=== PATIENT | female | born 1995 | race African-American/Black ===

== ENCOUNTER 2018-12-22 23:40 | Inpatient (IN) | payer BC ==
[2018-12-23] MEDS: DEXTROSE 5%-LACTATED RINGERS 1,000 ML IV SCH ×2 (00:30→10:16)
[2018-12-23 01:13] LABS: BASO % 0.6 % (0-2.0); EOS % 0.9 % (0-4.5); HEMATOCRIT 35.1 % (32.4-45.2); HEMOGLOBIN 11.7 GM/dL (10.7-15.3); LYMPH % 28.2 % (8-40); MCH 30.2 pg (25.7-33.7); MCHC 33.3 g/dl (32.0-36.0); MEAN CELL VOLUME 90.6 fl (80-96); MEAN PLT VOLUME 8.5 fl (7.5-11.1); MONO % 10.6 % (3.8-10.2); NEUT % 59.7 % (42.8-82.8); PLATELET COUNT 213 K/MM3 (134-434); RBC 3.88 M/mm3 (3.60-5.2); RDW 14.2 % (11.6-15.6); WHITE BLOOD COUNT 7.6 K/mm3 (4.0-10.0)
[2018-12-23 01:25] VITALS: BMI 29.8
[2018-12-23 01:30] LABS: INR 0.97 (0.83-1.09); PROTHROMBIN TIME (PATIENT) 11.4 SEC (9.7-13.0)
[2018-12-23 01:32] LABS: ACTIVATED PTT 27.2 SECONDS (25.2-36.5)
[2018-12-23 01:39] LABS: BLOOD UREA NITROGEN 8.2 mg/dL (7-18); CALCIUM 8.5 mg/dL (8.5-10.1); CREATININE 0.8 mg/dL (0.55-1.3); POTASSIUM 3.9 mmol/L (3.5-5.1)
[2018-12-23] MEDS ORDERED: BUTORPHANOL TARTRATE 2 MG/ML VIAL IVPB ONE (02:25)
[2018-12-23] MEDS ORDERED: PROMETHAZINE HCL 25 MG/1 ML VIAL IVPB ONE (02:25)
[2018-12-23] MEDS ORDERED: PROMETHAZINE HCL 25 MG/1 ML VIAL ONE (02:29)
[2018-12-23] MEDS ORDERED: BUTORPHANOL TARTRATE 2 MG/ML VIAL ONE (02:29)
[2018-12-23] MEDS ORDERED: OXYTOCIN 20 UNITS in 0.9% NS 20 UNIT/1,000 ML INFUS.BAG IV ONE (05:44)
[2018-12-23] MEDS ORDERED: METHYLERGONOVINE MALEATE 0.2 MG/1 ML AMP IM PRN (06:41)
[2018-12-23] MEDS ORDERED: BISACODYL 10 MG SUPP.RECT RC PRN (06:41)
[2018-12-23] MEDS ORDERED: BENZOCAINE 28 GM HEMORRHOIDAL OINTMENT TP PRN (06:41)
[2018-12-23] MEDS ORDERED: WITCH HAZEL 50% (TUCKS) 40 PAD/JAR PAD TP PRN (06:41)
[2018-12-23] MEDS ORDERED: BENZOCAINE 20% 57 GM BOTTLE TP PRN (06:41)
--- NOTE | 2018-12-23 06:46 | HP ---
Past Medical History - Admission Chief Complaint: Labor pain History of Present Illness: 23 yo , @ 38 weeks gestation, EDC 01/05/19, admitted for labor pain. History Source: Patient Limitations to Obtaining History: No Limitations - Past Medical History ...: 2 ...Para: 0 ...Induced : 1 ...EDC by Sono: 01/05/19 - Past Surgical History Past Surgical History: Yes: None Hx Myomectomy: No Hx Transabdominal Cerclage: No - Smoking History Smoking history: Never smoked - Alcohol/Substance Use Hx Alcohol Use: No Home Medications - Allergies Allergies/Adverse Reactions: Allergies Allergy/AdvReac Type Severity Reaction Status Date / Time No Known Allergies Allergy Verified 12/23/18 00:36 - Home Medications Home Medications: Ambulatory Orders 19 Tablet 1 tab PO DAILY 12/23/18 Family Disease History - Family Disease History Family History: Unremarkable Review of Systems - Review of Systems Constitutional: reports: No Symptoms Eyes: reports: No Symptoms HENT: reports: No Symptoms Neck: reports: No Symptoms Cardiovascular: reports: No Symptoms Respiratory: reports: No Symptoms Gastrointestinal: reports: No Symptoms Genitourinary: reports: Pain Breasts: reports: No Symptoms Reported Musculoskeletal: reports: No Symptoms Integumentary: reports: No Symptoms Neurological: reports: No Symptoms Endocrine: reports: No Symptoms Hematology/Lymphatic: reports: No Symptoms Psychiatric: reports: No Symptoms Pain Intensity: 8 Physical Exam - Maternity Vital Signs: Vital Signs Temperature 98.0 F 12/23/18 04:00 Pulse Rate 88 12/23/18 05:00 Respiratory Rate 20 12/23/18 05:00 Blood Pressure 127/82 12/23/18 05:00 O2 Sat by Pulse Oximetry (%) Constitutional: Yes: Well Nourished Eyes: Yes: Conjunctiva Clear HENT: Yes: Atraumatic Neck: Yes: Supple Cardiovascular: Yes: Regular Rate and Rhythm Lungs: Clear to auscultation - Abdominal Exam/OB Number of Fetuses: Single Presentation: Vertex - Vaginal Exam/OB Dilatation (cm): 3-4 Effacement (%): 80 Amniotic Membrane Status: Intact Presentation: Vertex/Position Station: -1 - Physical Exam Integumentary: Yes: WNL ...Motor Strength: WNL Psychiatric: Yes: Alert, Oriented - Labs Lab Results: CBC, BMP 12/23/18 00:55 12/23/18 00:55 Problem List - Problems (1) 38 weeks gestation of Code(s): Z3A.38 - 38 WEEKS GESTATION OF (2) Pain during labor Code(s): O99.89 - OTH DISEASES AND CONDITIONS COMPL PREG/CHLDBRTH; R52 - PAIN, UNSPECIFIED Assessment/Plan Active labor Admit to L&D Analgesia as needed Anticipate
--- NOTE | 2018-12-23 06:48 | PN ---
Delivery - Delivery Vaginal Delivery: Spontaneous Episiotomy/Laceration: 1st degree EBL (cc): 300 Delivery, Single - Ward Feeding Plan Initial Plan: Exclusive throughout hospitalization Remarks - Remarks Remarks: Normal spontaneous vaginal delivery of a live infant over fist degree laceration. Nose / Oropharynx suctioned @ perineum. Cord clamped and cut. Baby handed to nurse. Placenta expelled spontaneously intact. Mother in stable condition.
[2018-12-23] MEDS ORDERED: TUBERCULIN PPD 5 TU/0.1ML SYRINGE (IN PATIENT USE ONLY) ID ONE (10:00)
[2018-12-23] MEDS: PRENATAL VITAMINS W/ FOLIC ACID TABLET (FP) PO SCH (10:08)
[2018-12-23] MEDS: OXYTOCIN 20 UNITS in 0.9% NS 20 UNIT/1,000 ML INFUS.BAG IV SCH (12:45)
[2018-12-23] MEDS: IBUPROFEN 600 MG TABLET (FP) PO PRN ×2 (13:21→22:19)
[2018-12-23] MEDS: ACETAMINOPHEN 325 MG TABLET (FP) PO PRN ×2 (13:21→22:18)
[2018-12-23] MEDS: FERROUS SO4 325 MG TABLET (FP) PO SCH (17:47)
--- NOTE | 2018-12-24 06:43 | PN ---
Post Progress Note - Subjective Subjective: Pt seen/evaluated and doing well. Pain controlled with medications, tolerating diet, ambulating, voiding. VB moderate but decreasing. No other complaints. Type of Delivery: Vital Signs: Vital Signs Temperature 97.7 F 12/24/18 05:00 Pulse Rate 69 12/24/18 05:00 Respiratory Rate 18 12/24/18 05:00 Blood Pressure 119/60 12/24/18 05:00 O2 Sat by Pulse Oximetry (%) 98 12/23/18 07:30 Uterus: Yes: Fundus Firm Abdomen/GI: Yes: Abdomen soft Lochia: Yes: Rubra Lochia, amount: Small Extremities: No: Calves non-tender, Edema Perineum: Yes: Laceration (re approximated well) Activity: Ambulating - Labs Labs: CBC WBC 7.6 K/mm3 (4.0-10.0) 12/23/18 00:55 RBC 3.88 M/mm3 (3.60-5.2) 12/23/18 00:55 Hgb 11.7 GM/dL (10.7-15.3) 12/23/18 00:55 Hct 35.1 % (32.4-45.2) D 12/23/18 00:55 MCV 90.6 fl (80-96) 12/23/18 00:55 MCH 30.2 pg (25.7-33.7) 12/23/18 00:55 MCHC 33.3 g/dl (32.0-36.0) 12/23/18 00:55 RDW 14.2 % (11.6-15.6) 12/23/18 00:55 Plt Count 213 K/MM3 (134-434) 12/23/18 00:55 MPV 8.5 fl (7.5-11.1) D 12/23/18 00:55 Absolute Neuts (auto) 4.5 K/mm3 (1.5-8.0) 12/23/18 00:55 Neutrophils % 59.7 % (42.8-82.8) 12/23/18 00:55 Lymphocytes % 28.2 % (8-40) 12/23/18 00:55 Monocytes % 10.6 % (3.8-10.2) H 12/23/18 00:55 Eosinophils % 0.9 % (0-4.5) 12/23/18 00:55 Basophils % 0.6 % (0-2.0) 12/23/18 00:55 Nucleated RBC % 0 % (0-0) 12/23/18 00:55 Problem List - Problems (1) Normal vaginal delivery Code(s): O80 - ENCOUNTER FOR FULL-TERM UNCOMPLICATED DELIVERY Assessment/Plan 23 y/o PPD#1 s/p normal AFVSS CBC pending regular diet PO pain meds routine care
[2018-12-24 07:38] LABS: BASO % 0.4 % (0-2.0); EOS % 0.7 % (0-4.5); HEMATOCRIT 29.2 % (32.4-45.2); LYMPH % 20.5 % (8-40); MCH 30.8 pg (25.7-33.7); MCHC 34.4 g/dl (32.0-36.0); MEAN CELL VOLUME 89.7 fl (80-96); MEAN PLT VOLUME 8.2 fl (7.5-11.1); MONO % 9.9 % (3.8-10.2); NEUT % 68.5 % (42.8-82.8); PLATELET COUNT 195 K/MM3 (134-434); RBC 3.26 M/mm3 (3.60-5.2); RDW 14.3 % (11.6-15.6); WHITE BLOOD COUNT 10.4 K/mm3 (4.0-10.0)
[2018-12-24] MEDS: FERROUS SO4 325 MG TABLET (FP) PO SCH ×2 (08:00→17:00)
[2018-12-24] MEDS: PRENATAL VITAMINS W/ FOLIC ACID TABLET (FP) PO SCH (09:46)
[2018-12-24] MEDS: ACETAMINOPHEN 325 MG TABLET (FP) PO PRN (11:22)
[2018-12-24] MEDS: IBUPROFEN 600 MG TABLET (FP) PO PRN (11:22)
[2018-12-24] MEDS ORDERED: SENNOSIDES/DOCUSATE COMBO (SENNA PLUS) TABLET (UD) PO PRN (22:00)
--- NOTE | 2018-12-25 07:20 | DS ---
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 Vital Signs: Vital Signs Temperature 98.3 F 12/24/18 21:29 Pulse Rate 75 12/24/18 21:29 Respiratory Rate 20 12/24/18 21:29 Blood Pressure 111/55 L 12/24/18 21:29 O2 Sat by Pulse Oximetry (%) 98 12/23/18 07:30 Constitutional: Yes: Well Nourished Eyes: Yes: Conjunctiva Clear HENT: Yes: Atraumatic Neck: Yes: Supple Cardiovascular: Yes: Regular Rate and Rhythm Respiratory: Yes: Regular Gastrointestinal: Yes: Normal Bowel Sounds External Genitalia: Yes: Normal Vaginal Exam: Yes: Normal Cervix: Yes: Normal Uterus: Yes: Firm ....Post : Yes: Uterus firm, Moderate lochia serosa Breast(s): Yes: WNL Musculoskeletal: Yes: WNL Extremities: Yes: WNL Neurological: Yes: Alert, Oriented ...Motor Strength: WNL Psychiatric: Yes: Alert, Oriented Labs: CBC, BMP 12/24/18 06:54 12/23/18 00:55 Delivery - Delivery Vaginal Delivery: Spontaneous Type of Anesthesia: None Episiotomy/Laceration: None, 1st degree EBL (cc): 300 Delivery, Single - Stages of Labor Date 1st Stage Initiatied: 12/22/18 Time 1st Stage Initiated: 21:00 Date 2nd Stage Initiated: 12/23/18 Time 2nd Stage Initiated: 06:00 Date of Delivery: 12/23/18 Time of Delivery: 06:16 Time Placenta Delivered: 06:20 - 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 - 1 Minute Total Score: 9 5 Minutes Total Score: 9 - Feeding Plan Initial Plan: Exclusive throughout hospitalization Discharge Summary Reason For Visit: LABOR ADMIT Current Active Problems 38 weeks gestation of (Acute) Normal vaginal delivery (Acute) Pain during labor (Acute) Procedures: Principal: Normal vaginal delivery Hospital Course: Routine care Condition: Good - Instructions Diet, Activity, Other Instructions: Physical activity Resume your normal everyday activity as tolerated but no heavy lifting or strenuous exercise until seen by your surgeon. You may walk unlimited amounts and climb stairs. You may resume driving the car when you feel safe and comfortable behind the wheel. No sexual activity as instructed. Wound care You have stitches that will dissolve on their own. You may shower daily but do NOT soak in tubs/baths/pool until cleared by your doctor - likely in 6 weeks. Diet There are no dietary restrictions. Eat healthy, high-fiber foods. Drink 6 to 8 glasses of liquid each day. This will assist in keeping your bowels regular. Pain management You may take Tylenol or Ibuprofen (for example, Motrin, Advil etc.) as needed for pain. Call MD for any of the following: Severe pain not relieved by medication Fever of 101 or higher Excessive bleeding or drainage on dressing Inability to urinate Referrals: Marylin Cabrales DO [Staff Physician] - 1 Month (6 weeks) Disposition: HOME - Home Medications Comprehensive Discharge Medication List: Ambulatory Orders 19 Tablet 1 tab PO DAILY 12/23/18
[2018-12-25] MEDS: DEXTROSE 5%-LACTATED RINGERS 1,000 ML IV SCH ×4 (07:49→11:57)
[2018-12-25] MEDS: OXYTOCIN 20 UNITS in 0.9% NS 20 UNIT/1,000 ML INFUS.BAG IV SCH ×2 (07:49→11:58)
[2018-12-25] MEDS: FERROUS SO4 325 MG TABLET (FP) PO SCH (07:50)
[2018-12-25] MEDS: PRENATAL VITAMINS W/ FOLIC ACID TABLET (FP) PO SCH (10:30)
[2018-12-25 12:25] VITALS: BP 121/83; PULSE 62; TEMP 98.1
== END 2018-12-25 13:40 | disposition home or self-care (01) | DRG 807 ==
LOC: JLDR 23:40 → J3W 12-23 08:16
PROVIDERS: ADMIT Obstetrics & Gynecology; ATTEND Obstetrics & Gynecology
PROC: 10E0XZZ Delivery of Products of Conception, External Approach (ICD-10-PCS; principal; 2018-12-23)
PROC: 0HQ9XZZ Repair Perineum Skin, External Approach (ICD-10-PCS; 2018-12-23)
DX: O70.0 First degree perineal laceration during delivery (principal); Z37.0 Single live birth; Z3A.38 38 weeks gestation of pregnancy
CPT/HCPCS: 36415; 59409; 80048; 85025; 85610; 85730; 86593; 86850; 86900; 86901

== ENCOUNTER 2020-08-10 04:55 | Inpatient (IN) | payer BC, OTHER ==
[2020-08-10 05:24] VITALS: BMI 30.4
[2020-08-10] MEDS ORDERED: ONDANSETRON 4 MG/2 ML VIAL IVPUSH ONE (05:46)
[2020-08-10] MEDS ORDERED: LACTATED RINGERS SOLUTION 1000 ML INFUS.BAG IV ONE (05:46)
[2020-08-10] MEDS ORDERED: ACETAMINOPHEN 1000 MG/100 ML VIAL (NON FORMULARY) IVPB ONE (05:46)
[2020-08-10] MEDS ORDERED: ONDANSETRON 4 MG/2 ML VIAL ONE (05:55)
[2020-08-10] MEDS ORDERED: ACETAMINOPHEN INJECTION 100 ML IVPB ONE (05:55)
[2020-08-10 06:09] LABS: EPI CELLS 9 /uL (0-25.1); HCG,QUALITATIVE URINE Negative; HYALINE CASTS 3 /uL (0-3.1); URINE APPEARANCE CLOUDY; URINE BACTERIA 729 /uL (0-1359); URINE BILIRUBIN NEGATIVE (NEGATIVE); URINE COLOR YELLOW; URINE GLUCOSE (UA) NEGATIVE (NEGATIVE); URINE KETONE NEGATIVE (NEGATIVE); URINE LEUK ESTERASE 2+ (NEGATIVE); URINE NITRITE NEGATIVE (NEGATIVE); URINE PROTEIN 1+ (NEGATIVE); URINE RBC 61 /uL (0-23.9); URINE UROBILINOGEN 0.2 mg/dL (0.2-1.0); URINE WBC 613 /uL (0-25.8)
[2020-08-10] MEDS ORDERED: KETOROLAC TROMETHAMINE 30 MG/1 ML VIAL IVPUSH ONE (06:23)
[2020-08-10] MEDS ORDERED: KETOROLAC TROMETHAMINE 30 MG/1 ML VIAL ONE (06:26)
[2020-08-10 06:42] LABS: BASO % 0.4 % (0-2.0); EOS % 0.2 % (0-4.5); HEMATOCRIT 36.6 % (32.4-45.2); HEMOGLOBIN 12.4 GM/dL (10.7-15.3); MCH 30.2 pg (25.7-33.7); MEAN CELL VOLUME 88.9 fl (80-96); MEAN PLT VOLUME 9.3 fl (7.5-11.1); MONO % 9.5 % (3.8-10.2); NEUT % 74.9 % (42.8-82.8); PLATELET COUNT 180 K/MM3 (134-434); RBC 4.12 M/mm3 (3.60-5.2); RDW 13.3 % (11.6-15.6); WHITE BLOOD COUNT 8.4 K/mm3 (4.0-10.0)
[2020-08-10 06:55] LABS: POTASSIUM 3.8 mmol/L (3.5-5.1)
[2020-08-10 06:59] LABS: CALCIUM 9.1 mg/dL (8.5-10.1)
[2020-08-10 07:00] LABS: BLOOD UREA NITROGEN 14.9 mg/dL (7-18)
[2020-08-10 07:03] LABS: CREATININE 1.3 mg/dL (0.55-1.3)
[2020-08-10 07:04] LABS: BILIRUBIN,TOTAL 0.4 mg/dL (0.2-1); TOT PROT 7.4 g/dl (6.4-8.2)
[2020-08-10] MEDS ORDERED: CEFTRIAXONE 1 GM in DEXTROSE 5%-WATER - 100 ML IVPB ONE (08:55)
[2020-08-10] MEDS ORDERED: CEFTRIAXONE 1 GM/50 ML BAG ONE (09:00)
[2020-08-10] MEDS ORDERED: SODIUM CHLORIDE 1,000 ML IV SCH ×2 (09:15→15:13)
[2020-08-10 10:19] LABS: INR 1.03 (0.83-1.09); PROTHROMBIN TIME (PATIENT) 12.6 SEC (9.7-13.0)
[2020-08-10] MEDS ORDERED: ACETAMINOPHEN 1000 MG/100 ML VIAL (NON FORMULARY) IVPB PRN ×2 (11:17→15:13)
[2020-08-10] MEDS ORDERED: LIDOCAINE HCL/PF 2% SDV 5ML VIAL ONE (14:11)
[2020-08-10] MEDS ORDERED: MIDAZOLAM HCL 2 MG/2 ML SINGLE DOSE VIAL ONE (14:12)
[2020-08-10] MEDS ORDERED: PROPOFOL 20 ML ONE (14:12)
[2020-08-10] MEDS ORDERED: DEXAMETHASONE SOD PHOSPHATE 4 MG/1 ML VIAL ONE (14:46)
[2020-08-10 18:24] VITALS: BP 138/85; PULSE 64; TEMP 98.8
[2020-08-11] MEDS ORDERED: CEFTRIAXONE 1 GM in DEXTROSE 5%-WATER - 50 ML IVPB SCH (10:00)
== END 2020-08-10 18:05 | disposition home or self-care (01) | DRG 661 ==
LOC: JER 04:55 → JERBED 08:55 → J2C 16:00
PROVIDERS: ADMIT Internal Medicine; ATTEND Internal Medicine
PROC: 0T778DZ Dilation of Left Ureter with Intraluminal Device, Via Natural or Artificial Opening Endoscopic (ICD-10-PCS; principal; 2020-08-10 15:00)
PROC: BT1FYZZ Fluoroscopy of Left Kidney, Ureter and Bladder using Other Contrast (ICD-10-PCS; 2020-08-10 15:00)
DX: N13.6 Pyonephrosis (principal); R10.9 Unspecified abdominal pain; R11.2 Nausea with vomiting, unspecified
CPT/HCPCS: 36415; 74176-TC; 76000-TC-FY; 80053; 80061; 81003; 83721; 84703; 85025; 85610; 86850; 86900; 86901; 87086; 87186; 87491; 87591; 94760; 99285-25; C9803; J0131; U0003

== ENCOUNTER 2020-09-15 04:41 | Day surgery (SDC) | payer OTHER ==
[2020-09-12 12:39] VITALS: BMI 25.0
[2020-09-15] MEDS ORDERED: DEXAMETHASONE SOD PHOSPHATE 4 MG/1 ML VIAL ONE (09:36)
[2020-09-15] MEDS ORDERED: LIDOCAINE HCL/PF 2% SDV 5ML VIAL ONE (09:36)
[2020-09-15] MEDS ORDERED: PROPOFOL 20 ML ONE ×2 (09:36)
[2020-09-15] MEDS ORDERED: GLYCOPYRROLATE 0.2 MG/1 ML VIAL ONE (09:36)
[2020-09-15] MEDS ORDERED: MIDAZOLAM HCL 2 MG/2 ML SINGLE DOSE VIAL ONE (09:39)
[2020-09-15] MEDS ORDERED: SEVOFLURANE 250 ML BTL ONE (09:54)
[2020-09-15] MEDS ORDERED: ceFAZolin SODIUM 1 GM VIAL ONE (10:10)
[2020-09-15] MEDS ORDERED: oxyCODONE HCL 5 MG TABLET PO PRN (10:16)
[2020-09-15] MEDS ORDERED: ONDANSETRON 4 MG/2 ML VIAL IVPUSH PRN (10:16)
[2020-09-15] MEDS ORDERED: ceFAZolin 2 GRAM PREMIX BAG IVPB ONE (10:20)
[2020-09-15] MEDS ORDERED: LACTATED RINGERS SOLUTION 1,000 ML IV SCH (10:30)
[2020-09-15] MEDS ORDERED: ESMOLOL HCL 100,000 MCG/10 ML VIAL ONE (10:51)
[2020-09-15] MEDS ORDERED: KETOROLAC TROMETHAMINE 30 MG/1 ML VIAL ONE (11:02)
[2020-09-15 14:38] VITALS: BP 122/88; PULSE 80; TEMP 97.1
== END 2020-09-15 14:30 | disposition home or self-care (01) ==
LOC: JASU-SURG 04:41
PROVIDERS: ATTEND Urology
PROC: 0TF78ZZ Fragmentation in Left Ureter, Via Natural or Artificial Opening Endoscopic (ICD-10-PCS; principal; 2020-09-15 09:30)
PROC: 0T778DZ Dilation of Left Ureter with Intraluminal Device, Via Natural or Artificial Opening Endoscopic (ICD-10-PCS; 2020-09-15 09:30)
DX: N20.1 Calculus of ureter (principal); N13.39 Other hydronephrosis
CPT/HCPCS: 36415; 76000-TC-FY; 82360; 84703; 88300-TC; 94760

== ENCOUNTER 2020-09-26 08:15 | Emergency (ER) | payer BC, OTHER ==
[2020-09-26] MEDS ORDERED: ONDANSETRON 4 MG/2 ML VIAL IVPUSH ONE (08:42)
[2020-09-26] MEDS ORDERED: KETOROLAC TROMETHAMINE 30 MG/1 ML VIAL IVPUSH STA (08:42)
[2020-09-26] MEDS ORDERED: SODIUM CHLORIDE 1,000 ML IV STA (08:43)
[2020-09-26 08:44] VITALS: BP 127/92; PULSE 88; TEMP 99; BMI 27.4
[2020-09-26] MEDS ORDERED: ONDANSETRON 4 MG/2 ML VIAL ONE (09:03)
[2020-09-26] MEDS ORDERED: KETOROLAC TROMETHAMINE 30 MG/1 ML VIAL ONE (09:03)
[2020-09-26 09:22] LABS: BASO % 0.9 % (0-2.0); EOS % 0.5 % (0-4.5); HEMATOCRIT 34.4 % (32.4-45.2); HEMOGLOBIN 11.5 GM/dL (10.7-15.3); LYMPH % 15.7 % (8-40); MCH 29.2 pg (25.7-33.7); MCHC 33.3 g/dl (32.0-36.0); MEAN CELL VOLUME 87.8 fl (80-96); MONO % 8.7 % (3.8-10.2); NEUT % 74.2 % (42.8-82.8); PLATELET COUNT 558 K/MM3 (134-434); RBC 3.92 M/mm3 (3.60-5.2); RDW 13.8 % (11.6-15.6); WHITE BLOOD COUNT 12.2 K/mm3 (4.0-10.0)
[2020-09-26 09:47] LABS: ALBUMIN 3.6 g/dl (3.4-5.0); BLOOD UREA NITROGEN 11.5 mg/dL (7-18)
[2020-09-26 09:51] LABS: CREATININE 1.4 mg/dL (0.55-1.3); TOT PROT 8.7 g/dl (6.4-8.2)
[2020-09-26 10:01] LABS: BILIRUBIN,TOTAL 0.4 mg/dL (0.2-1)
[2020-09-26 10:35] LABS: EPI CELLS 34 /uL (0-25.1); HYALINE CASTS 22 /uL (0-3.1); PH,URINE 5.5 (5.0-8.0); URINE APPEARANCE CLOUDY; URINE BACTERIA 1784 /uL (0-1359); URINE BILIRUBIN 2+ (NEGATIVE); URINE COLOR DK YELLOW; URINE GLUCOSE (UA) NEGATIVE (NEGATIVE); URINE KETONE 3+ (NEGATIVE); URINE LEUK ESTERASE 1+ (NEGATIVE); URINE NITRITE NEGATIVE (NEGATIVE); URINE PROTEIN 2+ (NEGATIVE); URINE UROBILINOGEN 0.2 mg/dL (0.2-1.0); URINE WBC 338 /uL (0-25.8)
[2020-09-26 11:54] LABS: URINE RBC 22.9 /uL (0-23.9)
== END 2020-09-26 13:19 | disposition home or self-care (01) ==
LOC: JER 08:15
PROC: 3E0333Z Introduction of Anti-inflammatory into Peripheral Vein, Percutaneous Approach (ICD-10-PCS; principal; 2020-09-26)
PROC: 3E033GC Introduction of Other Therapeutic Substance into Peripheral Vein, Percutaneous Approach (ICD-10-PCS; 2020-09-26)
PROC: 3E0337Z Introduction of Electrolytic and Water Balance Substance into Peripheral Vein, Percutaneous Approach (ICD-10-PCS; 2020-09-26)
DX: N39.0 Urinary tract infection, site not specified (principal)
CPT/HCPCS: 36415; 76775-TC; 80053; 81003; 85025; 87086; 99284-25

== ENCOUNTER 2023-02-08 16:05 | Emergency (ER) | payer OTHER ==
[2023-02-08 16:21] VITALS: BMI 24.4
[2023-02-08] MEDS ORDERED: ONDANSETRON 4 MG/2 ML VIAL IVPUSH ONE (16:31)
[2023-02-08] MEDS ORDERED: SODIUM CHLORIDE 0.9% 500 ML INFUS.BAG IV ONE (16:31)
[2023-02-08] MEDS ORDERED: KETOROLAC TROMETHAMINE 15 MG/ML VIAL IVPUSH ONE (16:32)
[2023-02-08] MEDS ORDERED: ONDANSETRON 4 MG/2 ML VIAL ONE (16:39)
[2023-02-08] MEDS ORDERED: KETOROLAC TROMETHAMINE 15 MG/ML VIAL ONE (16:39)
[2023-02-08 16:59] LABS: EOS % 0.6 % (0-4.5); HEMOGLOBIN 14.1 GM/dL (10.7-15.3); LYMPH % 30.6 % (8-40); MCH 30.3 pg (25.7-33.7); MCHC 34.3 g/dl (32.0-36.0); MEAN CELL VOLUME 88.2 fl (80-96); MEAN PLT VOLUME 7.9 fl (7.5-11.1); MONO % 9.9 % (3.8-10.2); NEUT % 57.9 % (42.8-82.8); PLATELET COUNT 217 10^3/uL (134-434); RBC 4.65 M/mm3 (3.60-5.2); RDW 13.7 % (11.6-15.6); WHITE BLOOD COUNT 6.8 K/mm3 (4.0-10.0)
[2023-02-08 17:22] LABS: POTASSIUM 4.1 mmol/L (3.5-5.1)
[2023-02-08 17:23] LABS: ALBUMIN 4.3 g/dl (3.4-5.0); CALCIUM 9.1 mg/dL (8.5-10.1); MAGNESIUM 1.9 mg/dL (1.8-2.4)
[2023-02-08 17:25] LABS: BLOOD UREA NITROGEN 7.8 mg/dL (7-18)
[2023-02-08 17:26] LABS: CREATININE 0.8 mg/dL (0.55-1.3); PHOSPHOROUS 3.7 mg/dL (2.5-4.9)
[2023-02-08 17:29] LABS: BILIRUBIN,TOTAL 0.6 mg/dL (0.2-1); TOT PROT 8.3 g/dl (6.4-8.2)
[2023-02-08 18:05] VITALS: BP 119/81; PULSE 77; RESP 14; TEMP 98
== END 2023-02-08 18:33 | disposition home or self-care (01) ==
LOC: JER 16:05
PROC: 3E0333Z Introduction of Anti-inflammatory into Peripheral Vein, Percutaneous Approach (ICD-10-PCS; principal; 2023-02-08)
PROC: 3E033GC Introduction of Other Therapeutic Substance into Peripheral Vein, Percutaneous Approach (ICD-10-PCS; 2023-02-08)
DX: R11.10 Vomiting, unspecified (principal); R19.7 Diarrhea, unspecified
CPT/HCPCS: 36415; 80053; 83690; 83735; 84100; 84703; 85025; 99284-25

== ENCOUNTER 2025-02-14 19:26 | Emergency (ER) | payer OTHER ==
[2025-02-14 19:40] VITALS: BP 155/95; PULSE 80; RESP 16; TEMP 98.5; BMI 24.0
== END 2025-02-14 20:31 | disposition home or self-care (01) ==
LOC: JERFT 19:26
DX: Z76.0 Encounter for issue of repeat prescription (principal)
CPT/HCPCS: 99281-25